=== PATIENT | female | born 1970 | race Caucasian/White ===

== ENCOUNTER → 2017-10-11 15:28 | Outpatient (CLI) | payer OTHER, SELFPAY ==
[2017-10-16 11:09] LABS: HPV Reflexed? NOT INDICATED
== END ==
PROVIDERS: Visit Provider Obstetrics & Gynecology
DX: Z12.4 Encounter for screening for malignant neoplasm of cervix (principal)
CPT/HCPCS: 88175; G0145

== ENCOUNTER → 2017-12-13 12:03 | Outpatient (CLI) | payer OTHER, SELFPAY ==
[2017-12-13 13:54] LABS: HIV - WCH Non-Reactive (Nonreactive)
[2017-12-15 01:58] LABS: Rapid Plasmin Reagin (RPR) NONREACTIVE (NONREACTIVE)
[2017-12-15 11:32] LABS: HEPATITIS B SURFACE AG Negative (Negative); Hep C Antibodies <0.1 s/co ratio (0.0-0.9)
== END ==
PROVIDERS: Visit Provider Obstetrics & Gynecology
DX: Z11.3 Encounter for screening for infections with a predominantly sexual mode of transmission (principal)
CPT/HCPCS: 36415; 86592; 86703; 86803; 87340

== ENCOUNTER → 2018-12-21 13:18 | Outpatient (CLI) | payer OTHER, SELFPAY ==
[2018-12-26 14:56] LABS: Age Gdln ACOG Testing 30-65 (.)
[2018-12-26 15:36] LABS: HPV APTIMA, High Risk Negative (Negative); HPV Reflexed? YES, CHARGE PATIENT
== END ==
PROVIDERS: Visit Provider Obstetrics & Gynecology
DX: Z12.4 Encounter for screening for malignant neoplasm of cervix (principal)
CPT/HCPCS: 87624; 88175; G0145

== ENCOUNTER → 2021-01-29 11:54 | Outpatient (CLI) | payer OTHER, SELFPAY ==
[2021-01-29 14:20] LABS: HIV - WCH Non-Reactive (Nonreactive); Hepatitis B Surface Antibody Non-Reactive; Hepatitis B Surface Antigen Non-Reactive (Nonreactive); Hepatitis C Antibody Non-Reactive (Nonreactive); Syphilis Antibodies Non-reactive
[2021-02-05 09:43] LABS: HPV APTIMA, High Risk Negative (Negative)
== END ==
PROVIDERS: Visit Provider Student in an Organized Health Care Education/Training Program
DX: Z11.3 Encounter for screening for infections with a predominantly sexual mode of transmission (principal); Z12.4 Encounter for screening for malignant neoplasm of cervix
CPT/HCPCS: 36415; 86703; 86706; 86780; 86803; 87340; 87624; 88175; G0145

== ENCOUNTER 2021-03-08 13:43 | Outpatient (CLI) | payer OTHER, SELFPAY | END 2021-03-08 23:59 | disposition home or self-care (01) | PROVIDERS: Visit Provider Student in an Organized Health Care Education/Training Program | DX: N76.0 Acute vaginitis (principal) ==

== ENCOUNTER 2021-08-03 05:58 | Day surgery (SDC) | payer OTHER, SELFPAY ==
[2021-07-27 12:15] LABS: Hematocrit 37.5 % (37-47); Hemoglobin 12.9 g/dL (12.0-15.0); Mean Corp Hgb Conc 34.4 g/dL (32-36); Mean Corpuscular Hgb 29.1 pg (27.0-32.0); Mean Corpuscular Volume 84.7 fL (81-99); Platelet Count 284 K/mm3 (150-450); RBC Distribution Width CV 12.5 % (11.6-14.6); RBC Distribution Width SD 38.5 fl (35.1-43.9); Red Blood Count 4.43 M/mm3 (4.2-5.4); White Blood Count 7.5 K/mm3 (4.4-11.0)
[2021-08-03] VITALS (9 sets, daily range): BP systolic 119–144; BP diastolic 57–80; PULSE 81–88; RESP 15–16; TEMP 36.4–37; O2SAT 91–100; BMI 40.5
[2021-08-03] MEDS: Lactated Ringers 1,000 ML 15 ML IV (06:55)
--- NOTE | 2021-08-03 07:05 | PCM.HP.BLA ---
History and Physical Date of Admission: 08/03/21 HISTORY OF PRESENT ILLNESS: Beth Emerson, a 51 year old female 0 0 0 0 0, presented for: hysteroscopy, dilation and curettage, diagnostic laparoscopy possible myomectomy, possible ovarian cystectomy for persistent ovarian cyst, pelvic pressure, post menopausal bleeding. MEDICAL HISTORY: 1. History of cardiac ablation and pacemaker ALLERGIES: Dilantin, Heart arrythmia, Dilantin, Irregular heart rate, Latex and Hives and/or rash MEDICATIONS HISTORY: Patient is also takin. aspirin 81 mg chewable tablet, One pill by mouth once a day HEMATO-IMMUNOLOGIC - Denies excessive bleeding with cuts SURGICAL HISTORY: 1. 1985 tonsils 2. 2001 Pacemaker implant 3. 09/15 Heart Cath, and ablation 4. 05/23, Hysteroscopy, D and C Belkis Dixon M.D. 5. Heart ablation 2018 6. PACEMAKER, 2010 irregular rhythm MENSTRUAL HISTORY: LMP Known?- Approximate-Month KnownAmount/Duration - 3-5 days, Regularity - missed periods, Frequency - variable days, LMP - 05/28/18, Age Onset Menarche - 11 PAST PREGNANCIES: Total Pregnancies - 0; Full Term Pregnancies - 0; Premature - 0; Abortions, Induced - 0; Abortions, Spontaneous - 0; Ectopics - 0; Multiple Births - 0; Living Children - 0 FAMILY HISTORY: Family history of DM II. Maternal history of Heart Disease. Paternal history of Heart Disease. Mother: Rheumatoid arthritis(RA). SOCIAL HISTORY: Alcohol Use - None Smoking - denies smoking Drug Use - denies REVIEW OF SYSTEMS: GENERAL - Denies fever, or chills SKIN - hormonal acne EYES - wears eye glasses EARS - Denies difficulty hearing NOSE - Denies nasal congestion or bleeding MOUTH - Denies sore throat or difficulty swallowing NECK - Denies pain or swelling RESPIRATORY - Denies shortness of breath or wheezing CARDIOVASCULAR - Denies palpitations or chest pain GASTROINTESTINAL - Denies nausea, vomiting, diarrhea, constipation GENITOURINARY - Denies dysuria, frequency of urination, urgency, or hesitancy MUSCULOSKELETAL - Denies joint or muscle pain NEUROLOGICAL - Denies localized numbness or weakness PSYCHIATRIC - Denies depression or anxiety ENDOCRINE - Denies heat or cold intolerance, weight loss or g PHYSICAL EXAMINATION BP- 146/62 Right lower arm Weight- 244.0 lbs Height- 65.25 inch BMI:40.29 CONSTITUTIONAL - NAD, well nourished, and well developed SKIN - No rash, lesions, or ulcers HEENT - Normocephalic, PERRLA, EOMI LUNGS - CTA x2 without wheezes, crackles or rales CARDIAC - Regular rate and rhythm without rubs, murmurs, or gallops EXTREMITIES - No edema or calf tenderness NEUROLOGICAL - Cranial nerves II-XII grossly intact PSYCHIATRIC - A and O to time, place, person, mood and affect ASSESSMENT/PLAN: 1. Leiomyoma Of Uterus, Unspecified, Lower Abdominal Pain, Post menopausal bleeding. Planned for hysteroscopy, dilation and curettage, diagnostic laparoscopy, possible myomectomy, possible ovarian cystectomy. Reviewed surgical plan again this morning. Risks, benefits, alternatives discussed. Risks include, but not limited to: risk of bleeding to the point of transfusion, infection, injury to surrounding tissue (bowel/bladder/major abdominal vessels/uterine perforation), VTE, ICU admission. Patient aware and consented.
[2021-08-03] MEDS: Lactated Ringers 1,000 ML 125 ML IV (07:06)
--- NOTE | 2021-08-03 07:30 | EMB_PTH ---
PATIENT: JAMEEL STEWART [place] [facility] [place][id number] AGE/SX: 51/F ROOM: RE08/03/[address]: Dr. Miroslava Darnell DO : 1970 BED: DIS: 08/03/2021 SPEC #: [id number] RECD: 08/03/21 09:17 STATUS: ELSIE REHiram #: [id number] ELINA: 08/03/21 07:[address]: Miroslava Darnell DEPT: SURGICAL PATHOLOGY RECD BY: Daniela Quiles ENTERED: 08/03/21 09:37 SP TYPE: ENDOM BX/C LUIS DANIEL DR: Dr. Dm Teresa MD Tissues: Endometrium, NOS Procedures: Surgery Specimen Level IV HEADER OPERATION: Hysteroscopy, dilation and curettage, diagnostic laparoscopy PRE-OP DIAGNOSIS: Postmenopausal bleeding, ovarian cyst, leiomyoma TISSUE SUBMITTED: Endometrial curettings MICROSCOPIC DIAGNOSIS Endometrium, curettings: Rare fragments of benign squamous and glandular mucosa. See comment. AM:edwin 08/04/2021 COMMENT Clinical correlation is suggested. Case has been reviewed in consultation with Dr. Matta who concurs with the above diagnosis. IDC:[email or web address] MICROSCOPIC DESCRIPTION Slides are reviewed. GROSS DESCRIPTION Received in fixative is one container labeled with the patient's name and designated endometrial curettings. The specimen consists of scan fragments of truong soft tissue measuring in aggregate 0.5 x 0.1 x 0.1 cm. The entire specimen is submitted in one cassette. / DEVI:edwin 08/03/2021 TC:5 CPT: 84385
--- NOTE | 2021-08-03 07:32 | PCM.OPRPT ---
Report of Operation Date of Procedure: 08/03/21 Pre-Operative Diagnosis: Postmenopausal bleeding, ovarian cyst, leiomyoma Post-Operative Diagnosis: Postmenopausal bleeding, ovarian cyst, large cervical fibroid Surgery/Procedure Performed:: Hysteroscopy, dilation and curettage, diagnostic laparoscopy Description of Surgical Findings:: Normal-appearing external genitalia. No uterine descensus. Filmy endometrial cavity. Large amount of intra-abdominal fat, abdominal wall fat, epiploic fat. Large anterior cervical fibroid, retroverting uterus posteriorly at an almost 90 degree angle. Uterus retroverted into the posterior cul de sac. Unable to visualize ovaries and tubes fully. Type of Anesthesia: General Specimen's removed: Endometrial curettings Estimated Blood Loss (mL): 5cc Fluids Replaced: 600cc Description of Procedure: Indication/risk/benefits: 51-year-old female with postmenopausal bleeding, persistent simple ovarian cyst, pelvic pressure/pain. Plan for hysteroscopy, dilation curettage, diagnostic laparoscopy with possible ovarian cystectomy possible. All risk, benefits, alternatives were discussed with the patient. Risk include but are not limited to: Risk point of transfusion, infection, injury to surrounding tissue including bowel/bladder/major abdominal vessels, VTE, ICU admission. Patient were consented. Procedure: Patient taken to the operating room and placed under general anesthesia. Patient with placed in the dorsal lithotomy position prepped and draped in the usual sterile fashion. Weighted speculum placed in the posterior vagina and Ni retractor used to visualize the cervix. Anterior lip of the cervix grasped with single-tooth tenaculum. Cervix sequentially dilated, uterus sounded to 7 cm. Hysteroscope placed through cervical canal, inspection of endometrial cavity completed noting findings above. Hysteroscope removed. Curettage completed 360 degree manner. De Dios catheter placed. Gloves changed and attention turned to the anterior abdominal wall. A horizontal infraumbilical incision made with scalpel. Infraumbilical 5 mm trocar placed under direct visualization. Abdomen insufflated. Findings of abdominal cavity noted above. Left lower quadrant 5 mm trocar placed under direct visualization. Bowel retracted away from cervical fibroid and uterus. Perforation of uterus noted on the right superior aspect of the cervical fibroid. Not laterally involving vasculature. Uterus distorted position noted, posteriorly into the posterior cul-de-sac. Unable to retract bowel away from the uterus to a fully visualized uterus and ovaries due to bowel fat and uterine position. Bladder was backfilled in order to ensure that position of uterine perforation was far from bladder. Bladder backfilled with 180 cc saline. Bladder filled. Perforation was noted to be far from the superior aspect of the bladder and vesicouterine peritoneum. Perforation hemostatic. Bladder drained. Decision to stop surgery made based on findings. Pneumoperitoneum stopped. Trochars removed. Skin closed with subcuticular stitch and skin glue. De Dios catheter and uterine manipulator removed. Cervix hemostatic. At the end of the procedure all needle, lap, sponge counts were correct x2. UOP: 50cc
--- NOTE | 2021-08-03 07:32 | PCM.DC ---
Discharge Instructions Diet Discharge Diet: No restrictions Activity Discharge Activity: Return to Normal Activity May resume sexual activity in: 2 weeks Weight Bearing Status: Weight bearing as tolerated Lifting Restrictions: No greater than 25 pounds Dressing / Incision Call your doctor if your incision/area has: Continuous Slow Oozing, Increased Pain/ Swelling, Increased Redness and Swelling at the incision site Call your doctor if you observe: Fever of 101 or Higher, Inability to urinate, Inability to have a bowel movement, Using more than 1 pad per hour, Shortness of breath, Dizziness, Chest pain, Calf discomfort and Uncontrolled pain Cleanse incision/area with: Soap & Water and Keep Dressing Clean & Dry Follow Up Care Please Follow Up With: Miroslava Darnell DO When: 2 weeks Test Results: Test results from this visit will be discussed in further detail at your follow-up appointment, if applicable. Discharge Plan Admission Primary Reason for Your Visit: Dilation and curettage, laparoscopy Attending Provider: Miroslava Darnell Primary Care Provider: Dm Teresa Discharge Orders/Prescriptions Prescriptions: New hydrocodone-acetaminophen 5-325 mg tablet 1 tab PO Q6H PRN (Reason: pain) 3 Days Qty: 10 0RF Continued metoprolol tartrate 25 mg tablet 25 tab PO PRN PRN (Reason: palpitations) Other Ambulatory Orders: Basic Metabolic Profile (BMP) (Routine) Timeframe: [id number] Facility: [facility] - Location: Laboratory Ordered By: Dr. Meng Aburto Referrals / Follow Up: Dm Teresa MD [Primary Care Provider] - Disposition Disposition (needs filled in before D/C Order can be placed): Home, Self Care
[2021-08-03] MEDS: Lubricating Jelly 60 GM Tube 30 GM (07:54)
--- NOTE | 2021-08-03 11:35 | SUR.PHASEII ---
lungs clear bilateral
== END 2021-08-03 11:36 | disposition home or self-care (01) ==
LOC: SDC 06:06 → AC 06:06
PROVIDERS: PCP Family Medicine; Referring Provider Student in an Organized Health Care Education/Training Program; Visit Provider Student in an Organized Health Care Education/Training Program
PROC: 0UDB8ZZ Extraction of Endometrium, Via Natural or Artificial Opening Endoscopic (ICD-10-PCS; CPT 58558; principal; 2021-08-03 07:15)
DX: D25.9 Leiomyoma of uterus, unspecified (principal); N85.4 Malposition of uterus; Z79.82 Long term (current) use of aspirin; Z95.0 Presence of cardiac pacemaker
CPT/HCPCS: 58558; 36415; 85027; 86850; 86900; 86901; 88305; J7120; J2405